=== PATIENT | female | born 2000 | race Two or more races ===

== ENCOUNTER → 2024-03-06 | Outpatient (CLI) | payer BC, MEDICAID | END | disposition home or self-care (01) | LOC: RAD 10:03 | PROVIDERS: ATTEND Nurse Practitioner Obstetrics & Gynecology | DX: O09.93 Supervision of high risk pregnancy, unspecified, third trimester (principal); Z97.5 Presence of (intrauterine) contraceptive device; Z3A.33 33 weeks gestation of pregnancy | CPT/HCPCS: 76805 ==

== ENCOUNTER → 2024-04-01 | Outpatient (CLI) | payer BC, MEDICAID | END | disposition home or self-care (01) | LOC: RAD 14:30 | PROVIDERS: ATTEND Nurse Practitioner Obstetrics & Gynecology | DX: O09.93 Supervision of high risk pregnancy, unspecified, third trimester (principal); Z3A.36 36 weeks gestation of pregnancy | CPT/HCPCS: 76815 ==

== ENCOUNTER 2024-04-10 15:10 | Outpatient (CLI) | payer BC, MEDICAID | END 2024-04-10 23:59 | disposition home or self-care (01) | LOC: RAD 15:10 | PROVIDERS: ATTEND Nurse Practitioner Obstetrics & Gynecology | DX: O09.93 Supervision of high risk pregnancy, unspecified, third trimester (principal); Z3A.00 Weeks of gestation of pregnancy not specified | CPT/HCPCS: 76815 ==